=== PATIENT | female | born 1990 | race Caucasian/White ===

== ENCOUNTER 2016-08-12 18:10 | Emergency (ER) | payer OTHER ==
[~2016-08-12 18:10] MED LIST: Ascorbic Acid PO; DOCU-41 PO; FERR-74 PO; FOLI0.4T2 PO; IBUP-1827 PO; INSU100V28 SUBQ; OXYC1TAB24 PO; PREN1TAB87 PO
[2016-08-12 18:21] VITALS: BP 117/76; PULSE 118; RESP 16; O2SAT 97
--- NOTE | 2016-08-12 19:43 | DRSVH ---
PROCEDURE: X-RAY RIGHT KNEE, THREE VIEWS ([id number]) INDICATIONS: right knee pain TECHNIQUE: 3 views of the knee were acquired. COMPARISON: None. FINDINGS: Bones: No fractures or dislocations. No suspicious bony lesions. Soft tissues: Mild joint effusion. No suspicious soft tissue calcifications. IMPRESSION: Mild effusion. No visualized fracture. If clinical concern persists, short interval fol lowup imaging in 7-10 days is recommended Dictated by: Sandrita Reyez M.D. on 08/12/2016 at 19:40 Approved by: Sandrita Reyez M.D. on 08/12/2016 at 19:41
[2016-08-12] MEDS ORDERED: HYDROcodone-APAP 5-325 mg Tablet PO ONE (20:10)
--- NOTE | 2016-08-12 20:10 | ED.REPORT ---
HPI-Extremity Problem Lower Date of Service Aug 12, 2016 ED Provider: Shmuel,Ed History of Present Illness: 26-year-old female here for right knee pain. Onset about 4 days ago. No known incident. Gradually worsening. She chases around two kids and she has not allowed to rest. She also lives on the second floor apartment building so has to climb stairs. Pain increases with ending as well as any sort of ambulation. Improved with rest. She is type I diabetic but her blood sugars have been normal and she does not feel any flulike symptoms. No previous knee injuries Nursing Notes Stated Complaint: KNEE INJURY Chief Complaint: Extremity Trauma Nursing Notes Reviewed: Yes Allergies: Coded Allergies: No Known Drug Allergies (Verified Allergy, Unknown, 08/12/16) Scheduled ([Ascorbic Acid]) 500 MG TABLET 500 MG PO DAILY Docusate Sodium (Colace) 100 Mg Capsule 100 MG PO BID Ferrous Sulfate (Feosol) 325 Mg Tablet 325 MG PO daily Folic Acid (Folic Acid) 0.4 Mg Tablet 0.4 MG PO DAILY Insulin Regular, Human (HUMulin-R U100 Insulin Vial) 100 Unit/1 Ml Vial 1-9 UNIT SUBQ TID WITH MEALS Vit W-Ca,Fe,FA(<1 mg) ( Vitamins) 1 Each Tablet 1 EACH PO DAILY Scheduled PRN Hydrocodone-Acetaminophen 5-325 mg (Hydrocodone-Acetaminophen 5-325 mg) 1 Each Tablet 1 TABLET PO Q4H PRN PRN For Pain Ibuprofen (Ibuprofen) 600 Mg Tablet 600 MG PO Q6H PRN PRN For Pain oxyCODONE-Acetaminophen 5-325 mg (oxyCODONE-Acetaminophen 5-325 mg) 1 Each Tablet 1-2 TAB PO Q4H PRN PRN For Pain General Time Seen by MD: 19:55 Chief Complaint Knee injury left Hx Obtained From: Patient Arrived By: Walk-in Onset Occurred: 4 days ago Symptom Duration: Since onset Location: : Knee left Severity: Current: Moderate Severity: Maximum: Moderate Associated with: Reports: Joint swelling Pertinent Negative: Pt denies other symptoms Exacerbated by: Range of motion Relieved by: Rest Similar Sx Previous: No Past Medical History Past Medical History Reports history of pancreatitis, DKA, and diabetic hospitalizations. Patient reports antonio Hepatitis C Denies other medical problems Reports: Diabetes mellitus Past Surgical History Left ovary removal in 2012 Reports: , Cholecystectomy Smoking History Current Every Day Smoker Social History Patient reports one sexual partner for the last 3 years. Drug Use: Denies drug use Other Social History: Good social support, Lives with children, Local resident Ambulatory Status Independent Review of Systems Review of Systems Note: R knee pain and swelling. Denies redness or fever Basic Review of Systems Eyes: Vision NL, No discharge ENT: Hearing NL, No pain, No nasal congestion, No pharyngeal pain Respiratory: No shortness of breath, No cough, No wheeze Cardiovascular: No chest pain, No dyspnea on exertion, No orthopnea, No parox noct dyspnea, No palpitations GI: No abdominal pain, No anorexia, No nausea, No vomiting Psychiatric: Normal thought content Constitutional: Denies: Chills, Fatigue, Fever, Lethargy, Malaise, Recent wt loss, Weakness - generalized Musculoskeletal: Reports: Joint pain Complete sys rev & neg: except as marked. Physical Exam Initial Vital Signs Vital Signs (First) Date Time Temp Pulse Resp B/P Pulse Ox O2 Delivery O2 Flow Rate FiO2 08/12/16 18:21 36.0 118 16 117/76 97 Room Air Initial VS: Reviewed, Vital signs normal General/Constitutional: Well-developed, Well-nourished Head / Eyes: Atraumatic, Normocephalic, PERRL Neck: Supple, Non-tender, Full range of motion Respiratory: Breath sounds normal, Clear to auscultation, No respiratory distress Cardiovascular: Regular rate & rhythm, Heart sounds normal, Intact distal pulses Upper Extremities: Vascular intact, Neuro intact, No swelling, No tenderness Skin: Warm, Dry, No cyanosis Neurologic: Alert, Oriented, Nonfocal Psychiatric: Mood/affect normal, Behavior normal, Normal thought content Lower Extremity / Pelvis / MS: Atraumatic, No erythema, Vascular intact Lower Ext Brief Normals: Knee L exam normal Left Knee: Positive: ROM reduced, Swelling present... (Mild), Tenderness present... (Moderate), Negative: Erythema present, Warmth present Pain with palpation of her right knee medially laterally distal to the patella. No pain to palpation of her posterior knee. Pain with any sort of movement of her knee she can flex and extend within a small range of motion. No obvious erythema or signs of infection. There is mild swelling. CMS intact distally Interpretation & Diagnostics Interpretation & Diagnostics: IMPRESSION: Mild effusion. No visualized fracture. If clinical concern persists, short interval followup imaging in 7-10 days is recommended Re-Eval/Medical Decision Med Decision/Clinical Course HR 80 upon exam Discharge & Departure Shift Change Sign-Out Imaging Studies: Imaging discussed Impression: Primary Impression: Right knee sprain Encounter type: initial encounter Involved ligament of knee: unspecified ligament Qualified Code: S83.91XA - Sprain of unspecified site of right knee, initial encounter Disposition: Home Patient Instructions: Knee Sprain (ED) Additional Instructions: When long leg knee brace for comfort at least for the next week or so. I had activity as tolerated, but pain be her guide. Follow up with your PCP next week for further care and possibly a physical therapy referral. Apply ice to your knee for pain control. Continue to take ibuprofen 3 times a day as hydrocodone's for severe pain only. If you gets signs of infection including redness, increased swelling, fever, or increased pain return to emergency room immediately. Expect healing to take up to 6 weeks Referrals: Kerwin Mccollum MD (PCP) EDSupervising Provider for APC: Fely Ryan MD copies to: Kerwin Mccollum MD, Linnea K ARNP Aug 12, 2016 20:09
[2016-08-12] MEDS ORDERED: HYDR-4003 PO (20:11)
[2016-08-12 20:20] VITALS: BP 105/65; PULSE 100; O2SAT 95
[2016-08-12 20:22] VITALS: BP 105/65; PULSE 100; RESP 16; O2SAT 95
== END 2016-08-12 20:33 | disposition home or self-care (01) ==
LOC: SED 18:10
DX: S83.91XA Sprain of unspecified site of right knee, initial encounter (principal); X58.XXXA Exposure to other specified factors, initial encounter; Y93.89 Activity, other specified; Y92.89 Other specified places as the place of occurrence of the external cause; Y99.8 Other external cause status; E10.9 Type 1 diabetes mellitus without complications; F17.200 Nicotine dependence, unspecified, uncomplicated; Z79.4 Long term (current) use of insulin

== ENCOUNTER 2016-10-25 22:43 | Emergency (ER) | payer OTHER ==
[~2016-10-25] VITALS: Ht 170.2 cm; Wt 71.0 kg
[~2016-10-25 22:43] MED LIST changes: +HYDR-4003 PO
[2016-10-25 22:47] VITALS: BP 116/78; PULSE 98; RESP 18; O2SAT 96
--- NOTE | 2016-10-25 22:59 | ED.REPORT ---
HPI-Extremity Problem Upper Date of Service Oct 25, 2016 ED Provider: Dr. Christopher Diaz M.D. The patient is a 26 year old female with a history of DM and diabetic neuropathy who presents to the ED with left arm pain onset yesterday morning, upon awakening. The patient also reports limited range of motion of the left shoulder. She denies neck pain, injury/trauma to the area, or other symptoms. The patient has tried naproxen, gabapentin, icing, heat, and stretching with no relief. She has never had similar symptoms in the past. Nursing Notes Stated Complaint: LT ARM PAIN Chief Complaint: Extremity Trauma Nursing Notes Reviewed: Yes Allergies: Coded Allergies: No Known Drug Allergies (Verified Allergy, Unknown, 08/12/16) Scheduled ([Ascorbic Acid]) 500 MG TABLET 500 MG PO DAILY Docusate Sodium (Colace) 100 Mg Capsule 100 MG PO BID Ferrous Sulfate (Feosol) 325 Mg Tablet 325 MG PO daily Folic Acid (Folic Acid) 0.4 Mg Tablet 0.4 MG PO DAILY Insulin Regular, Human (HUMulin-R U100 Insulin Vial) 100 Unit/1 Ml Vial 1-9 UNIT SUBQ TID WITH MEALS Vit W-Ca,Fe,FA(<1 mg) ( Vitamins) 1 Each Tablet 1 EACH PO DAILY Scheduled PRN Cyclobenzaprine (Cyclobenzaprine) 10 Mg Tablet 10 MG PO HS PRN PRN Spasm Hydrocodone-Acetaminophen 5-325 mg (Hydrocodone-Acetaminophen 5-325 mg) 1 Each Tablet 1 TABLET PO Q4H PRN PRN For Pain Ibuprofen (Ibuprofen) 600 Mg Tablet 600 MG PO Q6H PRN PRN For Pain Naproxen (Naprosyn) 500 Mg Tablet 500 MG PO BID PRN PRN For Pain oxyCODONE-Acetaminophen 5-325 mg (oxyCODONE-Acetaminophen 5-325 mg) 1 Each Tablet 1-2 TAB PO Q4H PRN PRN For Pain General Time Seen by MD: 22:58 Chief Complaint Other (Left Arm Pain) Hx Obtained From: Patient Arrived By: Walk-in Onset Occurred: Yesterday (Morning) Symptom Duration: Since onset Caused by: Mechanism unknown Location: : Arm left Quality: Painful Severity: Current: Moderate Severity: Maximum: Moderate Pertinent Negative: Relieved by nothing Immunizations: Tetanus up to date Recent Healthcare: No recent doctor visit Similar Sx Previous: No Past Medical History Past Medical History Type 1 diabetes mellitus on insulin pump Previously multiple hospitalizations for DKA, none reported the last several years Pancreatitis thought to be due to gallstones PCOS with left oophorectomy Depression and Anxiety Diabetic neuropathy Patient reports antonio Hepatitis C Reports: Diabetes mellitus Past Surgical History Left oophorectomy for 9 pound benign cyst in 2005 Reports: , Cholecystectomy Smoking History Current Every Day Smoker Social History Drug Use: Denies drug use Other Social History: Good social support, Lives with children, Local resident Ambulatory Status Independent Review of Systems Review of Systems Note: + Limited range of motion of the left shoulder Constitutional: Denies: Fever Musculoskeletal: Reports: Extremity pain (Left arm), Denies: Neck pain Complete sys rev & neg: except as marked. Respiratory: Denies: Non-productive cough, Shortness of breath GI: Denies: Diarrhea, Vomiting Physical Exam Initial Vital Signs Vital Signs (First) Date Time Temp Pulse Resp B/P Pulse Ox O2 Delivery O2 Flow Rate FiO2 10/25/16 22:47 36.8 98 18 116/78 96 Room Air Initial VS: Reviewed Head / Eyes: Atraumatic, Normocephalic ENT: Conjunctiva normal, No scleral icterus Respiratory: No respiratory distress Skin: Warm, Dry, No cyanosis Neurologic: Alert, Oriented, Nonfocal Psychiatric: Mood/affect normal, Behavior normal, Normal thought content General/Constitutional: Awake, Alert Neck: Non-tender Meningeal Signs / ROM: Positive: Rotation decreased L Guarded neck movements Upper Extremity / MS: Atraumatic, Neurologic intact, Vascular intact Left Shoulder: Positive: ROM reduced (Limited glenohumeral rotation and elevation), Tenderness present... (Over trapezius ) Left arm held against chest Interpretation & Diagnostics X-Ray Interpretation Xray Interpretation: Loss of cervical lordosis otherwise normal Study Performed: 2 View X-Ray Ordered: Neck (C-Spine) Interpretation / Wet Read by: Wet read ED physician Xray Interpretation: Normal Study Performed: Minimum 2 View X-Ray Ordered: Shoulder left Interpretation / Wet Read by: Wet read ED physician Re-Eval/Medical Decision Med Decision/Clinical Course 26-year-old diabetic who presents with spontaneous onset of neck and shoulder pain. This appears to be either strain from lifting her two children, or sleep induced positional injury. X-ray shows loss of cervical lordosis but no other significant finding. Shoulder is negative. She is begun with Naprosyn twice daily, cyclobenzaprine for muscle relaxation and sleep at night. Need for range of motion of her shoulder discussed explicitly and range of motion exercises demonstrated. Soft collar for sleep at night. Follow-up with PCP. Source of Hx: Old records Re-Evaluation/Progress : Time of Eval: 00:05 Patient Status: Condition improved Re-Evaluation/Progress Note: Discussed with patient x-ray results, diagnosis, and plan for discharge. Follow-up and return to the ER instructions given. Patient agrees with plan for care and all questions were addressed. Counseled Regarding: Diagnosis, Need for follow-up, When/why to return to ED Discharge & Departure Impression: Primary Impression: Cervical radiculopathy Additional Impressions: Shoulder pain Laterality: left Chronicity: acute Qualified Code: M25.512 - Pain in left shoulder Cervical paraspinous muscle spasm Disposition: Home Discharge Condition All VS Reviewed: Yes Condition: Improved Patient Instructions: Cervical Radiculopathy (ED), Cervical Sprain (ED), Soft Cervical Collar (ED) Additional Instructions: Use your soft collar to sleep for the next four or five nights. Begin Naprosyn 500 mg twice daily. Cyclobenzaprine at night to assist with sleep and provide muscle relaxation. We do not suggest use of the sling, as immobilization of the shoulder frequently results in a frozen shoulder and prolonged recovery. Instead, begin gentle range of motion of the shoulder, involving both rotation inward and outward, and also elevation of the shoulder gently to the limit of her discomfort. Follow-up with your doctor in the office. Return if any immediate issues. Referrals: Kerwin Mccollum MD (PCP) Sana Attestation Portions of this note were transcribed by Shelley Collier. I, Dr. Diaz, personally performed the history, physical exam, and medical decision-making; I reviewed and confirmed the accuracy of the information in the transcribed note. Signed by: Sana Virk, 10/26/2016, 01:20 copies to: Kerwin Mccollum MD, Christopher W MD Oct 25, 2016 22:59 SHELLEY COLLIER Oct 25, 2016 23:07
[2016-10-25] MEDS ORDERED: Dexamethasone 20 mg/2 mL Oral Solution PO ONE (23:05)
[2016-10-26] MEDS ORDERED: CYCL10TA9 PO (00:02)
[2016-10-26] MEDS ORDERED: NAPR500T PO (00:02)
[2016-10-26 00:26] VITALS: BP 115/83; RESP 16; O2SAT 98
--- NOTE | 2016-10-26 09:35 | DRSVH ---
PROCEDURE: X-RAY LEFT SHOULDER, MINIMUM TWO VIEWS ([id number]) INDICATIONS: pain left shoulder/radicular sx TECHNIQUE: 3 views of the shoulder were acquired. COMPARISON: None. FINDINGS: Bones: No fractures or dislocations. No suspicious bony lesions. Visualized ribs appear intact. Soft tissues: No suspicious soft tissue calcifications. IMPRESSION: No abnormality is seen in these 3 views of the left shoulder. Dictated by: Yasmany Martinez M.D. on 10/26/2016 at 9:33 Approved by: Yasmany Martinez M.D. on 10/26/2016 at 9:33
--- NOTE | 2016-10-26 09:35 | DRSVH ---
PROCEDURE: X-RAY CERVICAL SPINE, 2 OR 3 VIEWS INDICATIONS: pain left shoulder/radicular sx TECHNIQUE: 4 view(s) of the cervical spine were acquired. COMPARISON: None. FINDINGS: Bones: No fractures or dislocations to the C7-T1 level. The lateral masses of C1 appear intact on t he odontoid view. No suspicious bony lesions. Soft tissues: No prevertebral soft tissue swelling. IMPRESSION: No abnormality is found in these views of the cervical spine. Dictated by: Yasmany Martinez M.D. on 10/26/2016 at 9:33 Approved by: Yasmany Martinez M.D. on 10/26/2016 at 9:34
== END 2016-10-26 00:27 | disposition home or self-care (01) ==
LOC: SED 22:43
DX: M54.12 Radiculopathy, cervical region (principal); M25.512 Pain in left shoulder; M62.838 Other muscle spasm; E10.40 Type 1 diabetes mellitus with diabetic neuropathy, unspecified; F32.9 Major depressive disorder, single episode, unspecified; F41.9 Anxiety disorder, unspecified; F17.200 Nicotine dependence, unspecified, uncomplicated; Z79.4 Long term (current) use of insulin
CPT/HCPCS: 72040; 73030; 96372; 99284; J1885

== ENCOUNTER 2016-11-05 23:23 | Emergency (ER) | payer OTHER ==
[~2016-11-05] VITALS: Ht 170.2 cm; Wt 80.0 kg
[~2016-11-05 23:23] MED LIST changes: +CYCL10TA9 PO; +NAPR500T PO
[2016-11-05 23:30] VITALS: BP 138/94; PULSE 112; RESP 18; O2SAT 97
--- NOTE | 2016-11-05 23:45 | ED.REPORT ---
HPI-Extremity Problem Lower Date of Service Nov 05, 2016 ED Provider: Yefri Smallwood DO Pt is a 26 year old female with a history of type I DM who presents to the ED complaining of swelling on her left thigh onset this morning. She c/o associated left thigh pain and erythema. She reports that she does not shave in that area, and she has not tried to squeeze it. The pt denies . Nursing Notes Stated Complaint: PAINFUL KNOT ON INSIDE OF LEFT LEG Chief Complaint: Extremity Trauma Nursing Notes Reviewed: Yes Allergies: Coded Allergies: No Known Drug Allergies (Verified Allergy, Unknown, 08/12/16) Scheduled ([Ascorbic Acid]) 500 MG TABLET 500 MG PO DAILY Docusate Sodium (Colace) 100 Mg Capsule 100 MG PO BID Ferrous Sulfate (Feosol) 325 Mg Tablet 325 MG PO daily Folic Acid (Folic Acid) 0.4 Mg Tablet 0.4 MG PO DAILY Insulin Regular, Human (HUMulin-R U100 Insulin Vial) 100 Unit/1 Ml Vial 1-9 UNIT SUBQ TID WITH MEALS Vit W-Ca,Fe,FA(<1 mg) ( Vitamins) 1 Each Tablet 1 EACH PO DAILY Scheduled PRN Cyclobenzaprine (Cyclobenzaprine) 10 Mg Tablet 10 MG PO HS PRN PRN Spasm Hydrocodone-Acetaminophen 5-325 mg (Hydrocodone-Acetaminophen 5-325 mg) 1 Each Tablet 1 TABLET PO Q4H PRN PRN For Pain Ibuprofen (Ibuprofen) 600 Mg Tablet 600 MG PO Q6H PRN PRN For Pain Naproxen (Naprosyn) 500 Mg Tablet 500 MG PO BID PRN PRN For Pain oxyCODONE-Acetaminophen 5-325 mg (oxyCODONE-Acetaminophen 5-325 mg) 1 Each Tablet 1-2 TAB PO Q4H PRN PRN For Pain General Time Seen by MD: 23:44 Chief Complaint Thigh injury left Hx Obtained From: Patient Arrived By: Walk-in Onset Occurred: 5 - 8 hours ago Symptom Duration: Since onset Location: : Thigh left Quality: Painful Severity: Current: Mild Severity: Maximum: Moderate Immunizations: All up to date Recent Healthcare: Recent doctor visit Similar Sx Previous: No Past Medical History Past Medical History Type I diabetes mellitus on insulin pump Previously multiple hospitalizations for DKA, none reported the last several years Pancreatitis thought to be due to gallstones PCOS with left oophorectomy Depression and Anxiety Diabetic neuropathy Patient reports antonio Hepatitis C Reports: Diabetes mellitus Past Surgical History Left oophorectomy for 9 pound benign cyst in 2006 Reports: , Cholecystectomy Smoking History Current Every Day Smoker Social History Alcohol Use: Denies alcohol use Drug Use: Other (Marijuana) Other Social History: Good social support, Lives with children, Local resident Ambulatory Status Independent Review of Systems + Erythematous left thigh Constitutional: Denies: Fever Musculoskeletal: Reports: Extremity pain Complete sys rev & neg: except as marked. Respiratory: Denies: Non-productive cough, Shortness of breath Physical Exam Initial Vital Signs Vital Signs (First) Date Time Temp Pulse Resp B/P Pulse Ox O2 Delivery O2 Flow Rate FiO2 11/05/16 23:30 36.5 112 18 138/94 97 Initial VS: Reviewed Head / Eyes: Atraumatic, Normocephalic, PERRL ENT: Mucous membranes moist, Conjunctiva normal, No scleral icterus Neck: Supple, Full range of motion Respiratory: Breath sounds normal, Clear to auscultation, No respiratory distress Cardiovascular: Regular rate & rhythm, Heart sounds normal, Intact distal pulses Abdomen / GI: Soft, Non-tender Upper Extremities: Vascular intact, Neuro intact Skin: Warm, Dry, No cyanosis Neurologic: Alert, Oriented, Nonfocal Psychiatric: Mood/affect normal, Behavior normal Lower Extremity / Pelvis / MS: Full range of motion, Neurologic intact, Vascular intact Cellulitus on medial left thigh with erythema and abscess Ankle / Foot: Atraumatic, Full range of motion, Neurologic intact, Vascular intact Re-Eval/Medical Decision Med Decision/Clinical Course Cellulitis without abscess of the left medial thigh.. No signs or symptoms consistent with sepsis. She will be placed on antibacterials for skin and soft tissue infection. Close follow-up with primary care physician. Source of Hx: Old records Re-Evaluation/Progress : Time of Eval: 23:59 Re-Evaluation/Progress Note: Pt rechecked. Informed pt of plan for discharge. Pt understands and agrees with plan for discharge. F/U instructions and RTER warnings given. All questions addressed. Counseled Regarding: Diagnosis, Need for follow-up, When/why to return to ED Discharge & Departure Impression: Primary Impression: Cellulitis of left thigh Disposition: Home Discharge Condition All VS Reviewed: Yes Condition: Stable Patient Instructions: Cellulitis (ED) Additional Instructions: You have cellulitis. Take Bactrim 2x daily for 7 days. Take Keflex 1 tablet for 7 days. Take Phoenix 1-2 every 6 hours as needed[address] Do not drive or drink alcohol or consume acetaminophen while on Phoenix. If this grows in size or develops an abscess, come back for recheck. Follow up with your primary care provider in 3-5 days. Return to the Emergency department for any new or worsening symptoms. Referrals: Kerwin Mccollum MD (PCP) [place] Attestation Portions of this note were transcribed by Nga Ramírez. I, Dr. Smallwood personally performed the history, physical exam and medical decision-making; I reviewed and confirmed the accuracy of the information in the transcribed note. Signed by: Sana Cortez, 11/06/16 and 00:30. copies to: Kerwin Mccollum MD, Todd P DO Nov 05, 2016 23:45 Nga Mc Nov 06, 2016 00:04
[2016-11-06] MEDS ORDERED: Trimethoprim-Sulfa 160 mg-800 mg Tablet PO ONE
[2016-11-06] MEDS ORDERED: _HYDROcodone/APAP 5-325 mg Tablet PO PRN
== END 2016-11-06 00:30 | disposition home or self-care (01) ==
LOC: SED 23:23
DX: L03.116 Cellulitis of left lower limb (principal); F17.200 Nicotine dependence, unspecified, uncomplicated; E11.40 Type 2 diabetes mellitus with diabetic neuropathy, unspecified; Z79.4 Long term (current) use of insulin